=== PATIENT | male | born 1975 | race Caucasian/White ===

== ENCOUNTER 2017-12-09 20:44 | Emergency (ER) | payer OTHER ==
[2017-12-09 20:52] VITALS: BP 116/87; PULSE 76; TEMP 98.2; BMI 27.4
--- NOTE | 2017-12-09 20:58 | PDOC ---
History of Present Illness - General Chief Complaint: Laceration Stated Complaint: LT HAND LAC Time Seen by Provider: 12/09/17 20:51 - History of Present Illness Initial Comments: 12/09/17 21:27 42 years old no significant past medical history presents to the emergency department sepsis laceration to the base of his left index finger patient was opening a bottle of beer and the top bowel shattered. Does not see any obvious glass has full range of motion and good strength to his left index finger small 1 cm laceration. Tetanus is up-to-date. Past History - Past Medical History Allergies/Adverse Reactions: Allergies Allergy/AdvReac Type Severity Reaction Status Date / Time Penicillins Allergy Verified 12/09/17 20:45 Home Medications: Ambulatory Orders NK [No Known Home Medication] 12/09/17 COPD: No - Surgical History Appendectomy: Yes - Suicide/Smoking/Psychosocial Hx Smoking History: Never smoked Substance Use Type: None Review of Systems - Review of Systems Comments:: 12/09/17 21:31\ ROS: A complete review of 10 out of 10 review of systems is taken and is negative apart from what is previously mentioned below and in the HPI. *Physical Exam - Vital Signs Last Vital Signs Temp Pulse Resp BP Pulse Ox 98.2 F 76 16 116/87 97 12/09/17 20:50 12/09/17 20:50 12/09/17 20:50 12/09/17 20:50 12/09/17 20:50 - Physical Exam Comments: 12/09/17 21:31 Vitals: Triage Vital signs reviewed General Appearance: no acute distress, well nourished well developed, Head: Atraumatic, Extremities: Full range of motion to all extremities, no cyanosis, clubbing, or edema good strength at the FDS and FDP tendon in the left index finger neurovascularly intact distally good strength in extension Skin: Warm and dry, no rashes or lesions, no rash, no petechiae Neuro: Strength intact to all extremities, Sensation intact to all extremities, gait normal Psych: normal mood, normal affect Procedures - Laceration/Wound Repair Left 2nd digit Wound Length: to 2.5 cm Wound Explored: clean Wound's Depth, Shape: superficial Irrigated w/ Saline: Yes Betadine Prep: Yes Anesthesia: 1% Lidocaine Wound Repaired With: Sutures Suture Size/Type: 6:0 Layer Closure: No Sterile Dressing Applied: Yes Splint Applied: No Medical Decision Making - Medical Decision Making 12/09/17 21:32 Small laceration to index finger we'll x-ray given possibility of foreign body thoroughly irrigate. Normal exam. FDP/FDS intact. No obvious foreign body noted on x-ray thoroughly irrigated laceration approximated with 6. 0 nylon sutures Patient made aware of scar. Findings, the need for follow-up and strict return instructions discussed with patient. *DC/Admit/Observation/Transfer Diagnosis at time of Disposition: Finger laceration Qualifiers: Encounter type: initial encounter Finger: index finger Damage to nail status: without damage Foreign body presence: without foreign body Laterality: left Qualified Code(s): S61.211A - Laceration without foreign body of left index finger without damage to nail, initial encounter - Discharge Dispostion Disposition: HOME Condition at time of disposition: Stable Decision to Admit order: No - Referrals Referrals: ON STAFF,NOT [Primary Care Provider] - Nhan Bray MD [Staff Physician] - - Patient Instructions Printed Discharge Instructions: DI for Laceration Repair Additional Instructions: Leave covered and dry for the next 36 hours. Then apply bacitracin twice a day. Return to the emergency department in 7-10 days for suture removal. Okay to wash hand very gently did not disrupt sutures. Return to emergency department immediately for any swelling redness signs of infection or for any concerns. Follow-up with Dr. Bray for any weakness or decreased mobility to the finger. - Post Discharge Activity
[2017-12-09] MEDS ORDERED: LIDOCAINE 2.5%/PRILOCAINE 2.5% (5 Gram/TUBE) TP ONE ×2 (21:12→21:14)
[2017-12-09] MEDS ORDERED: DIPHTH,PERTUSS(ACELL),TET 0.5 ML DISP.SYRIN IM ONE (21:50)
== END 2017-12-09 22:01 | disposition home or self-care (01) ==
LOC: FER 20:44
PROC: 0HQGXZZ Repair Left Hand Skin, External Approach (ICD-10-PCS; principal; 2017-12-09)
PROC: 3E0234Z Introduction of Serum, Toxoid and Vaccine into Muscle, Percutaneous Approach (ICD-10-PCS; 2017-12-09)
DX: S61.211A Laceration without foreign body of left index finger without damage to nail, initial encounter (principal); W25.XXXA Contact with sharp glass, initial encounter; Y93.89 Activity, other specified; Y92.9 Unspecified place or not applicable
CPT/HCPCS: 73140-TC-LT-FY; 90715; 99281-25